=== PATIENT | male | born 1970 | race Caucasian/White ===

== ENCOUNTER 2017-12-14 15:09 | Emergency (ER) | payer MEDICAID ==
--- NOTE | 2017-12-14 15:14 | EDPHY ---
H & P Stated Complaint: dizzy, shakey, nausea starting last night Time Seen by Provider: 12/14/17 15:14 - Medical/Surgical History Hx Asthma: No Hx Chronic Respiratory Disease: No Hx Diabetes: No Hx Cardiac Disease: No Hx Renal Disease: No Hx Cirrhosis: No Hx Alcoholism: No Hx HIV/AIDS: No Hx Splenectomy or Spleen Trauma: No Other PMH: HIV. neck sx - Social History Smoking Status: Never smoked Constitutional: Initial Vital Signs Temperature (C) 36.9 C 12/14/17 15:11 Heart Rate 60 12/14/17 15:11 Respiratory Rate 20 12/14/17 15:11 Blood Pressure 125/85 H 12/14/17 15:11 O2 Sat (%) 96 12/14/17 15:11 O2 Delivery Mode Room Air Allergies/Adverse Reactions: hydrocortisone [From Hydrocortone] Allergy (Verified 12/14/17 15:10) Home Medications: Medication Instructions Recorded Discovy 12/14/17 [place] 12/14/17 Medical Decision Making ED Course/Re-evaluation: CHIEF COMPLAINT: Nausea, shakiness HISTORY OF PRESENT ILLNESS: The patient is a 47 y/o male complaining of nausea and shakiness, onset last night. He is HIV positive and on antiretroviral medications. He uses marijuana for the medication side effects. He ran out of marijuana a few days ago. Last night at work, he felt nervous and shaky with some stomach upset. This morning, he felt better, but continued to feel nauseated. Now, he reports some chest tightness and global tingling. Further, he has some pain along both sides of his abdomen, which he has felt previously and attributed to a medication side effect. He denies a cough, fever, sore throat, or any other associated symptoms or indications of illness. He also reports some pain in his jaw a few weeks ago, that lasted about a week before resolving. REVIEW OF SYSTEMS: A 10 point review of systems was performed and is negative with the exception of the elements mentioned in the history of present illness. PHYSICAL EXAM: HR, BP, O2 Sat, RR. Temp noted General Appearance: Alert, well hydrated, appropriate, and non-toxic appearing. Head: Atraumatic without scalp tenderness or obvious injury Eyes: Pupils equal, round, reactive to light and accommodation, EOMI, no trauma , no injection. Nose: Atraumatic, no rhinorrhea, clear. Throat: There is no erythema or exudates, no lesions, normal tonsils, mucus membranes moist. Neck: Supple, nontender, no lymphadenopathy. Respiratory: No retractions, no distress, no wheezes, and no accessory muscle use. Lungs are clear to auscultation bilaterally. Cardiovascular: Regular rate and rhythm, no murmurs, rubs, or gallops. Gastrointestinal: Abdomen is soft, nontender, non-distended, no masses, no rebound, no guarding, no peritoneal signs. Musculoskeletal: Normal active ROM of all extremities, atraumatic. Neurological: Alert, appropriate, and interactive. Skin: No rashes, good turgor, no nodules on palpation. Past medical history: HIV positive Past surgical history: Neck surgery Family history: Non-contributory Social history: Lives in [place], employed, medical marijuana use DIFFERENTIAL DIAGNOSIS: The differential diagnosis for this patient's nausea included but was not limited to medication side effects, gastritis, liver disease, gallstones, and viral process. MEDICAL DECISION MAKING: The patient presents with nausea and shakiness, onset last night. He uses marijuana for HIV antiretroviral medication side effects. He ran out of marijuana a few days ago. He denies any symptoms indicative of infectious processes. His exam is benign. Plan for CBC, basic metabolic panel, lipase, liver function, 1 L NS fluid, and 4mg Zofran. His labs have been rather unremarkable. With a benign exam, no infectious symptoms, and normal blood work, symptoms are likely due to antiretroviral side effects. Discontinuing the marijuana, allowed him to experience side effects more. I feel he is safe to return home. The patient agrees to this course of action. Follow-up instructions and return precautions given. - Data Points Laboratory Results: Laboratory Results 12/14/17 15:25 12/14/17 15:25 12/14/17 12/14/17 12/14/17 15:30 15:25 15:25 WBC 4.77 10^3/uL 10^3/uL (3.80-9.50) RBC 4.11 10^6/uL L 10^6/uL (4.40-6.38) Hgb 13.1 g/dL L g/dL (13.7-17.5) POC Hgb 13.3 gm/dL L gm/dL (13.7-17.5) Hct 36.9 % L % (40.0-51.0) POC Hct 39 % L % (40-51) MCV 89.8 fL fL (81.5-99.8) MCH 31.9 pg pg (27.9-34.1) MCHC 35.5 g/dL g/dL (32.4-36.7) RDW 13.3 % % (11.5-15.2) Plt Count 188 10^3/uL 10^3/uL (150-400) MPV 8.5 fL L fL (8.7-11.7) Neut % (Auto) 57.8 % % (39.3-74.2) Lymph % (Auto) 34.2 % % (15.0-45.0) [place] % (Auto) 6.1 % % (4.5-13.0) Eos % (Auto) 1.3 % % (0.6-7.6) Baso % (Auto) 0.4 % % (0.3-1.7) Nucleat RBC Rel Count 0.0 % % (0.0-0.2) Absolute Neuts (auto) 2.76 10^3/uL 10^3/uL (1.70-6.50) Absolute Lymphs (auto) 1.63 10^3/uL 10^3/uL (1.00-3.00) Absolute Monos (auto) 0.29 10^3/uL L 10^3/uL (0.30-0.80) Absolute Eos (auto) 0.06 10^3/uL 10^3/uL (0.03-0.40) Absolute Basos (auto) 0.02 10^3/uL 10^3/uL (0.02-0.10) Absolute Nucleated RBC 0.00 10^3/uL 10^3/uL (0-0.01) Immature Gran % 0.2 % % (0.0-1.1) Immature Gran # 0.01 10^3/uL 10^3/uL (0.00-0.10) POC Sodium 139 mEq/L mEq/L (135-145) Sodium 136 mEq/L mEq/L (135-145) POC Potassium 3.9 mEq/L mEq/L (3.3-5.0) Potassium 4.0 mEq/L mEq/L (3.3-5.0) POC Chloride 106 mEq/L mEq/L (97-110) Chloride 107 mEq/L mEq/L (97-110) Carbon Dioxide 20 mEq/l L mEq/l (22-31) Anion Gap 9 mEq/L mEq/L (8-16) POC BUN 18 mg/dL mg/dL (7-23) BUN 17 mg/dL mg/dL (7-23) Creatinine 0.8 mg/dL mg/dL (0.7-1.3) POC Creatinine 0.9 mg/dL mg/dL (0.7-1.3) Estimated GFR > 60 Glucose 126 mg/dL H mg/dL (70-100) POC Glucose 134 mg/dL H mg/dL (70-100) Calcium 9.4 mg/dL mg/dL (8.5-10.4) Total Bilirubin 0.5 mg/dL mg/dL (0.1-1.4) Conjugated Bilirubin 0.3 mg/dL mg/dL (0.0-0.5) Unconjugated Bilirubin 0.2 mg/dL mg/dL (0.0-1.1) AST 37 IU/L IU/L (17-59) ALT 42 IU/L IU/L (21-72) Alkaline Phosphatase 53 IU/L IU/L (38-126) Total Protein 7.4 g/dL g/dL (6.3-8.2) Albumin 4.3 g/dL g/dL (3.5-5.0) Lipase 84 IU/L IU/L (23-300) Medications Given: Discontinued Medications Sodium Chloride (Ns) 1,000 mls @ 0 mls/hr IV EDNOW ONE; Wide Open PRN Reason: Protocol Stop: 12/14/17 15:20 Last Admin: 12/14/17 15:27 Dose: 1,000 mls Ondansetron HCl (Zofran) 4 mg IVP EDNOW ONE Stop: 12/14/17 15:20 Last Admin: 12/14/17 15:29 Dose: 4 mg Point of Care Test Results: Chemistry 12/14/17 15:30 POC Sodium 139 mEq/L mEq/L (135-145) POC Potassium 3.9 mEq/L mEq/L (3.3-5.0) POC Chloride 106 mEq/L mEq/L (97-110) POC BUN 18 mg/dL mg/dL (7-23) POC Creatinine 0.9 mg/dL mg/dL (0.7-1.3) POC Glucose 134 mg/dL H mg/dL (70-100) ISTAT H&H 12/14/17 15:30 POC Hgb 13.3 gm/dL L gm/dL (13.7-17.5) POC Hct 39 % L % (40-51) Departure - Departure Disposition: Home, Routine, Self-Care Clinical Impression: Medication side effects Condition: Good Instructions: Medicinal Use of Cannabis (ED) Additional Instructions: 1. Follow up with your primary care provider for continued symptoms in 2 to 3 days. 2. Return to the emergency department for vomiting blood, blood in your stool, uncontrollable diarrhea, or any other worsening of condition. Referrals: KATIE WHITAKER [Other] - As per Instructions Report Scribed for: Deo Dawson Report Scribed by: April Trinidad Date of Report: 12/14/17 Time of Report: 16:37
[2017-12-14] MEDS ORDERED: ONDANSETRON 4 MG/2 ML VIAL IVP ONE (15:19)
[2017-12-14] MEDS ORDERED: NS 1,000 ML IV ONE (15:19)
[2017-12-14 15:50] LABS: PLATELET COUNT 188 10^3/uL (150-400)
[2017-12-14 16:08] VITALS: BP 109/70
== END 2017-12-14 16:26 | disposition home or self-care (01) ==
DX: R07.89 Other chest pain (principal); T37.5X5A Adverse effect of antiviral drugs, initial encounter; B20 Human immunodeficiency virus [HIV] disease; E86.9 Volume depletion, unspecified
CPT/HCPCS: 82435-PO; 82565-PO; 82947-PO; 84132-PO; 84295-PO; 84520-PO; 85014-PO; 96374; J2405